=== PATIENT | female | born 1995 | race Caucasian/White ===

== ENCOUNTER → 2019-06-23 10:31 | Outpatient (CLI) | payer MEDICAID, SELFPAY | PROVIDERS: Referring Provider Advanced Practice Midwife; Visit Provider Advanced Practice Midwife | DX: Z34.82 Encounter for supervision of other normal pregnancy, second trimester (principal); Z13.79 Encounter for other screening for genetic and chromosomal anomalies | CPT/HCPCS: 36415 ==

== ENCOUNTER 2020-01-18 14:12 | Inpatient (IN) | payer MEDICAID, SELFPAY ==
[2020-01-18 14:14] VITALS: BMI 28.7
[2020-01-18] MEDS: Lactated Ringers 1,000 ML 200 ML IV (16:10)
[2020-01-18 16:38] LABS: Absolute Lymphocyte Count 2.34 X10^3/uL (0.83-4.51); Basophil# 0.04 X10^3/uL; Basophil% 0.4 % (0-1); Eosinophil# 0.06 X10^3/uL; Eosinophils% 0.7 % (0-5); Hematocrit 37.7 % (37-47); Hemoglobin 12.7 g/dL (12.0-15.0); Lymphocyte # 2.34 X10^3/ul (4.0); Lymphocyte % 25.8 % (19-41); Mean Corp Hgb Conc 33.7 g/dL (32-36); Mean Corpuscular Hgb 29.3 pg (27.0-32.0); Mean Corpuscular Volume 86.9 fL (81-99); Mean Platelet Vol. 12.4 fl (6.2-12.0); Monocyte# 0.58 X10^3/uL; Monocyte% 6.4 % (0-10); NRBC Flagged by Analyzer 0 % (0-5); Neutrophil # 6.01 X10^3/uL (2.7-7.7); Neutrophil % 66.4 % (47-70); Platelet Count 211 K/mm3 (150-450); RBC Distribution Width CV 12.5 % (11.6-14.6); RBC Distribution Width SD 39.8 fl (35.1-43.9); Red Blood Count 4.34 M/mm3 (4.2-5.4); White Blood Count 9.1 K/mm3 (4.4-11.0)
[2020-01-18] MEDS: Lactated Ringers 500 ML 999 ML IV (16:40)
[2020-01-18] MEDS: Oxytocin 30 units/NS 500 ml 30 UNITS/500 ML IV.SOLN IV (17:44)
[2020-01-18] MEDS: 0.9% Normal Saline Single 100 ML IV.SOLN. IY (18:50)
--- NOTE | 2020-01-18 18:58 | HP.PCM_ITS ---
History Date of Admission: 01/18/20 Final KODI: 02/03/20 Gestational age: 37 Weeks and 5 Days Medical History: Medical History (Last Reviewed 01/12/20 @ 12:58 by Aleisha Villalobos) Anxiety F41.9 Bilateral headaches R51 Currently Z34.90 Environmental allergies Z91.09 GERD (gastroesophageal reflux disease) K21.9 Surgical History: Surgical History (Last Reviewed 01/12/20 @ 12:58 by Aleisha Villalobos) History of tonsillectomy and adenoidectomy Z98.890 Allergies No Known Allergies Allergy (Verified 01/18/20 14:15) Home Medications: Home Medications prenat.vits,abdoul,mfv-tsnb-gzyuy 1 tab PO DAILY 11/30/19 Smoking Status: Never smoker Alcohol: None Number of Fetus(es): 1 NST - FHR Rate Baby A Baseline: 145 Variability:: Moderate Accelerations:: 15 x 15 Decelerations:: Variable FHR Category:: Category II Uterine Activity:: Irregular History Past Pregnancies: Past Pregnancies Delivery Date Name GA/ Weeks Outcome Route Wt Sex Labor Length Anesthesia Delivery Location Provider FOB Labs: See [facility] H&P Physical Exam General: Alert, Oriented x3 Abdomen: Soft, Non Tender, Non-Distended - ff mid & below umb Extremities:: No tenderness/swelling Neurological: Cranial nerves II-XII grossly intact 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 Admit to L&D Induction - patient with persistent category 2 tracing in the office (variables) thus sent for induction. Patient is on pitocin & intracervical holbrook placed. FWB - fetus is tolerating induction. Plan for continuous monitoring. GBS negative EFW - less than 4500g, patient with adequate pelvis Pain - epidural as desired Routine care
[2020-01-18] MEDS: fentaNYL 100 MCG/2 ML Ampul IV (22:31)
[2020-01-19] VITALS (12 sets, daily range): BP systolic 104–121; BP diastolic 57–70; PULSE 85–118; RESP 16–20; TEMP 36.7–36.8; O2SAT 96–98
[2020-01-19] MEDS: Lactated Ringers 1,000 ML 200 ML IV ×2 (00:20→06:32)
[2020-01-19] MEDS: fentaNYL 100 MCG/2 ML Ampul IV (01:35)
[2020-01-19] MEDS: Lactated Ringers 500 ML 999 ML IV ×3 (01:36→09:22)
[2020-01-19] MEDS: fentaNYL-bupivacaine (epidural) 100 ML BAG EPIDURAL ×2 (03:55→08:38)
[2020-01-19] MEDS: Ondansetron 4 MG/2 ML Vial IV (04:52)
[2020-01-19 05:21] LABS: ROM Internal Control Test YES-OK TO RESULT pt. (Internal QC); ROM Patient Test POSITIVE (Negative)
[2020-01-19] MEDS: Amnioinfusion- 0.9% NS 1,000 ML IV.SOLN. INTRA-UTER (06:44)
--- NOTE | 2020-01-19 06:51 | PCM.PN.BLA ---
Progress Note S: Patient comfortable with epidural O: cvx - 5/80/-1 AROM blood tinged fluid FSE & IUPC placed fhts 145 with moderate variability, accels. intermittent variables and occ late decels tocos Q2-4 min A&P: continue pitocin induction FWB - EFM overall reassuring Start amnioinfusion as patient with variable after AROM and was having increased variables prior to AROM
--- NOTE | 2020-01-19 08:40 | PN.OBGYN_ITS ---
Subjective: Resting well with epidural and peanut ball in bed. Partner at bedside. Objective: FHR:FHT 135, moderate variability, accels, variable decels with occasional late decel, category 2 TOCO:every 3 minutes, moderate, Pitocin off Cervical exam: 6cm/80%/-2 - Physical Exam Vitals/I&O's: Weight: 162 lb 4.163 oz Body Mass Index (BMI) 28.7 Intake and Output for Last 24 Hours 01/17/20 01/18/20 01/19/20 23:59 23:59 23:59 Intake Total 917.44 / 917.44 2934.26 / 2934.26 Output Total 1200 / 1200 600 / 600 Balance -282.56 / -282.56 2334.26 / 2334.26 Laboratory Results 01/18/20 16:10: WBC 9.1, RBC 4.34, Hgb 12.7, Hct 37.7, MCV 86.9, MCH 29.3, MCHC 33.7, RDW Std Deviation 39.8, RDW Coeff of Niru 12.5, Plt Count 211, MPV 12.4 H, Immature Gran % (Auto) 0.300, Neut % (Auto) 66.4, Lymph % (Auto) 25.8, [place] % (Auto) 6.4, Eos % (Auto) 0.7, Baso % (Auto) 0.4, Absolute Neuts (auto) 6.0, Absolute Lymphs (auto) 2.34, Nucleated RBC % 0 01/18/20 16:10: Blood Type A POSITIVE, Antibody Screen NEGATIVE 01/19/20 05:10: Vag Amniotic Fld Detect POSITIVE H Current Medications Acetaminophen (Tylenol) 325 - 650 mg PO Q4H PRN PRN PRN Reason: Pain Score 1-3/10 Al Hydroxide/Mg Hydroxide (Mylanta Ii) 15 - 30 ml PO Q4H PRN PRN PRN Reason: INDIGESTION Citric Acid/Sodium Citrate (Bicitra) 30 ml PO X1 PRN PRN Reason: Section Ephedrine Sulfate () 10 mg IV Q10M PRN PRN Reason: hypotension Ephedrine Sulfate () 10 mg IM Q30M PRN PRN Reason: hypotension Fentanyl Citrate (Sublimaze (100mcg Ampule)) 25 - 50 mcg IV Q2H PRN PRN PRN Reason: Pain Score 4-10/10 Last Admin: 01/19/20 01:35 Dose: 50 mcg Documented by: Fentanyl/Bupivacaine/Sodium Chlor () 0 ml EPIDURAL UD ROME; Protocol Last Admin: 01/19/20 08:38 Dose: 100 ml Documented by: Oxytocin/Sodium Chloride () 30 units in 500 mls @ 2 mls/hr IV .Q250H ROME Last Infusion: 01/19/20 07:06 Dose: 0 mls/hr Documented by: Lactated Ringer's () 500 mls @ 999 mls/hr IV .Q31M PRN PRN Reason: Epidural Last Infusion: 01/19/20 04:10 Dose: Infused Documented by: Lactated Ringer's () 500 mls @ 999 mls/hr IV .Q31M PRN PRN Reason: Corrective Measures Last Infusion: 01/19/20 02:07 Dose: Infused Documented by: Lactated Ringer's () 1,000 mls @ 50 mls/hr IV .Q20H ROME Last Admin: 01/19/20 06:32 Dose: 200 mls/hr Documented by: Naloxone HCl 4 mg/ Dextrose 504 mls @ 0 mls/hr IV .Q0M PRN; Protocol PRN Reason: To maintain Resp. rate >10 Nalbuphine HCl (Nubain) 5 mg IV Q3H PRN PRN PRN Reason: ITCHING Naloxone HCl (Narcan) 0.02 mg IV Q1M PRN PRN Reason: RR< 10 AND PT UNRESPONSIVE Ondansetron HCl (Zofran) 4 mg IV Q4H PRN PRN PRN Reason: NAUSEA Last Admin: 01/19/20 04:52 Dose: 4 mg Documented by: Prochlorperazine Edisylate (Compazine Iv) 10 mg IV Q6H PRN PRN PRN Reason: NAUSEA Sodium Chloride () 10 - 40 ml IV X1 PRN PRN Reason: SALINE FLUSH Sodium Chloride () 0 ml INTRA-UTER X1 ROME Last Admin: 01/19/20 06:44 Dose: 1,000 ml Documented by: Medical Necessity - Tobacco Use Smoking Status: Never smoker Assessment/Plan All Active Problems (Last Reviewed 01/12/20 @ 12:58 by Aleisha Villalobos) Neck pain (Acute) Segmental and somatic dysfunction of sacral region (Acute) Segmental and somatic dysfunction of thoracic region (Acute) Segmental and somatic dysfunction of lumbar region (Acute) Segmental and somatic dysfunction of cervical region (Acute) A:Active labor, progressing Category 2 FHT P: 1) Restart Pitocin, continue with active management. Continue with amnioinfusion 2) [facility] physician, updated on patient status.
--- NOTE | 2020-01-19 08:59 | DCINST_ITS ---
Discharge Diet: No Restrictions Discharge Activity: Return to Normal Activity, May not drive while taking narcotic pain medications., May Shower May resume sexual activity in: 4-6 weeks Weight Bearing Status: Full weight bearing Additional Activity Instructions:: Nothing in the vagina for 4-6 weeks. You may return to work/school in 6 weeks. Call your doctor if your incision/area has: Continuous Slow Oozing, Sudden Increased Bleeding, Increased Pain/ Swelling, Increased Redness, Foul Smelling Discharge Call your doctor if you observe: Fever of 101 or Higher, Inability to urinate, Inability to have a bowel movement, Using more than one pad per hour, Shortness of breath, Chest pain, Increased palpitations (irregular heartbeat), Calf discomfort, Uncontrolled pain Additional Instructions: If you experience any of the following, contact your healthcare provider. * Bleeding that soaks a pad every hour for 2 hours * Fever 100.4 or higher * Unrelieved incision or abdominal pain * Swelling, redness, discharge or bleeding from your incision or episiotomy site * Your incision begins to separate * Problems urinating (including inability to urinate or burning while urinating). * Visual changes * Severe headache * Flu-like symptoms * Pain or redness in one of both of your breasts * Pain, warmth, tenderness or swelling in your legs, especially the calf area * Frequent nausea and vomiting * Symptoms of depression or anxiety If you experience any of the following, call 911 or go to the nearest Emergency Room. * Chest pain * Problems breathing * Seizure activity * Partial or complete paralysis of a body part, slurred speech, weakness or drooping of the face, or a sudden inability to walk or hold your balance Allergies/Adverse Reactions: Allergies No Known Allergies Allergy (Verified 01/18/20 14:15) Medications to take at Discharge prenat.vits,abdoul,enh-jwrd-lgbdx 1 tab PO DAILY 11/30/19 Please Follow Up With: Linh Alberto When: Call to make an appointment with your doctor in 6 weeks. If you had elevated Blood Pressure or 4th degree laceration you will need to be seen in 2 weeks. Primary Care Physician: Care Physician,No Primary [Primary Care Provider] - Test Results: Test results from this visit will be discussed in further detail at your follow- up appointment, if applicable.
[2020-01-19] MEDS: Oxytocin 30 units/NS 500 ml 30 UNITS/500 ML IV.SOLN 334 UNITS IV (10:58)
--- NOTE | 2020-01-19 11:06 | OP.PCM_ITS ---
Problem List (1) Vaginal delivery Status: Acute Vaginal Delivery Maternal Presentation: Medically Indicated Induction - Consistent category 2 heart tracing with variable decelerations Method of Induction: Pitocin, Zepeda Bulb Amniotic Membrane Rupture Type: Artificial Amniotic Fluid Description: Clear Gestational age: 37w2d Description of Procedure: Progressed to complete. Maternal pushing efforts initiated and presentation +3. of viable male over intact perineum. delivered LUZ with CAN x1, delivered through. Infant placed on maternal abdomen with strong cry, APGARS 8,9. Mouth and nares wiped for secretions. Pitocin started for active 3rd stage management. Placenta delivered spontaneously intact via shaq, 3 vessel cord. Fundus firm. perineum inspected and revealed intact perineum. EBL 300ml. Vaginal sweep complete. Sponge and instrument count correct. Mom and baby stable. Family bonding well. notified of de livery and patient status. Presentation: Vertex Placental Delivery Description: Spontaneous Placenta Disposition: [facility] Cord Vessel Description: 3 Vessels Cord Entanglement: Around neck x 1, loose Estimated Blood Loss: 300 ml A gender: Male (1 minute): 8 (5 minute): 9 Episiotomy Description: None Laceration: None Medications given after delivery: IV Pitocin
[2020-01-19] MEDS: 0.9% Saline Lock 10 ML Syringe IV (13:42)
--- NOTE | 2020-01-19 13:57 | NURSING ---
Epidural catheter removed. Patient tolerated well. Blue tip intact.
[2020-01-20 00:01] VITALS: BP 98/55; PULSE 80; RESP 16; TEMP 36.8
[2020-01-20] MEDS: Acetaminophen 500 MG Tablet 1000 MG PO (01:58)
[2020-01-20 04:00] VITALS: BP 117/66; PULSE 88; RESP 16; TEMP 36.8
[2020-01-20 07:45] VITALS: BP 100/64; PULSE 74; RESP 16; TEMP 36.4
--- NOTE | 2020-01-20 08:05 | PCM.PN.OB ---
Patient Problems: Active and Suspected Problems (Last Reviewed 01/12/20 @ 12:58 by Aleisha Villalobos) Vaginal delivery (Acute) Subjective: Seen at bedside, doing well. Patient reports good pain control. Mild lochia. Breast-feeding going well. Voiding without difficulty. - Physical Exam Vitals/I&O's: Vital Signs Temp Pulse Resp BP 98.2 F 88 16 117/66 01/20/20 04:00 01/20/20 04:00 01/20/20 04:00 01/20/20 04:00 Oxygen Delivery Method Room Air Weight: 73.6 kg Body Mass Index (BMI) 28.7 Intake and Output for Last 24 Hours 01/18/20 01/19/20 01/20/20 23:59 23:59 23:59 Intake Total 917.44 / 917.44 4945.46 / 4945.46 Output Total 1200 / 1200 1400 / 1400 Balance -282.56 / -282.56 3545.46 / 3545.46 General: Alert, Oriented x3 Extremities: No Calf Tenderness Neurological: Cranial nerves II-XII grossly intact Current Medications Acetaminophen (Tylenol) 1,000 mg PO Q8H PRN PRN PRN Reason: Pain Score 1-3/10 Last Admin: 01/20/20 01:58 Dose: 1,000 mg Documented by: Bisacodyl (Dulcolax) 10 mg RECTAL UD PRN PRN Reason: If no BM Dibucaine (Dibucaine) 1 applic TOPICAL TID PRN PRN; Protocol PRN Reason: Discomfort Hydrocortisone (Hytone) 1 applic TOPICAL TID PRN PRN; Protocol PRN Reason: Discomfort Ibuprofen (Motrin) 600 mg PO Q6H PRN PRN PRN Reason: Pain Score 1-3/10 Methylergonovine Maleate (Methergine) 0.2 mg IM X1 PRN PRN Reason: Excess bleeding/uterine atony Ondansetron HCl (Zofran) 4 mg IV Q4H PRN PRN PRN Reason: Nausea Senna/Docusate Sodium (Senokot-S, Lora-Colace) 1 - 2 tablet PO DAILY PRN PRN PRN Reason: Constipation Simethicone (Mylicon) 80 mg PO PCHS PRN PRN Reason: Indigestion/Stomach pain Sodium Chloride () 5 - 15 ml IV UD PRN PRN Reason: SALINE FLUSH Last Admin: 01/19/20 13:42 Dose: 10 ml Documented by: Medical Necessity - Tobacco Use Smoking Status: Never smoker Assessment/Plan All Active Problems (Last Reviewed 01/12/20 @ 12:58 by Aleisha Villalobos) Vaginal delivery (Acute) Neck pain (Acute) Segmental and somatic dysfunction of sacral region (Acute) Segmental and somatic dysfunction of thoracic region (Acute) Segmental and somatic dysfunction of lumbar region (Acute) Segmental and somatic dysfunction of cervical region (Acute) PPD #1, doing well pain mgmt ambulation routine PP care
[2020-01-20 10:21] LABS: Hematocrit 35.1 % (37-47); Hemoglobin 11.9 g/dL (12.0-15.0); Mean Corp Hgb Conc 33.9 g/dL (32-36); Mean Corpuscular Hgb 30.1 pg (27.0-32.0); Mean Corpuscular Volume 88.6 fL (81-99); Mean Platelet Vol. 12.1 fl (6.2-12.0); Platelet Count 191 K/mm3 (150-450); RBC Distribution Width CV 12.6 % (11.6-14.6); RBC Distribution Width SD 41.1 fl (35.1-43.9); Red Blood Count 3.96 M/mm3 (4.2-5.4); White Blood Count 10.8 K/mm3 (4.4-11.0)
[2020-01-20 12:00] VITALS: BP 102/67; PULSE 70; RESP 16; TEMP 36.8
[2020-01-20 16:00] VITALS: BP 107/59; PULSE 79; RESP 16; TEMP 36.6
--- NOTE | 2020-01-20 17:48 | DCINST_ITS ---
Discharge Diet: No Restrictions Discharge Activity: Return to Normal Activity, May not drive while taking narcotic pain medications., May Shower May resume sexual activity in: 4-6 weeks Weight Bearing Status: Full weight bearing Additional Activity Instructions:: Nothing in the vagina for 4-6 weeks. You may return to work/school in 6 weeks. Call your doctor if your incision/area has: Continuous Slow Oozing, Sudden Increased Bleeding, Increased Pain/ Swelling, Increased Redness, Foul Smelling Discharge Call your doctor if you observe: Fever of 101 or Higher, Inability to urinate, Inability to have a bowel movement, Using more than one pad per hour, Shortness of breath, Chest pain, Increased palpitations (irregular heartbeat), Calf discomfort, Uncontrolled pain Additional Instructions: If you experience any of the following, contact your healthcare provider. * Bleeding that soaks a pad every hour for 2 hours * Fever 100.4 or higher * Unrelieved incision or abdominal pain * Swelling, redness, discharge or bleeding from your incision or episiotomy site * Your incision begins to separate * Problems urinating (including inability to urinate or burning while urinating). * Visual changes * Severe headache * Flu-like symptoms * Pain or redness in one of both of your breasts * Pain, warmth, tenderness or swelling in your legs, especially the calf area * Frequent nausea and vomiting * Symptoms of depression or anxiety If you experience any of the following, call 911 or go to the nearest Emergency Room. * Chest pain * Problems breathing * Seizure activity * Partial or complete paralysis of a body part, slurred speech, weakness or drooping of the face, or a sudden inability to walk or hold your balance Allergies/Adverse Reactions: Allergies No Known Allergies Allergy (Verified 01/18/20 14:15) Medications to take at Discharge prenat.vits,abdoul,zsi-rkzz-oxixv 1 tab PO DAILY 11/30/19 Ibuprofen [Motrin] 600 mg PO Q6H PRN PRN #30 tab 01/20/20 The following prescriptions were given: Ibuprofen [Motrin] 600 mg PO Q6H PRN PRN #30 tab PRN Reason: Pain Score 1-3/10 Transmission Status: Pending to [facility] Please Follow Up With: Haley Salvador CNM When: 1-2 weeks Call for appointment [phone] Primary Care Physician: Care Physician,No Primary [NON-STAFF] - Test Results: Test results from this visit will be discussed in further detail at your follow- up appointment, if applicable.
--- NOTE | 2020-01-20 17:48 | PCM.DCVAG ---
Discharge Diet: No Restrictions Discharge Activity: Return to Normal Activity, May not drive while taking narcotic pain medications., May Shower May resume sexual activity in: 4-6 weeks Weight Bearing Status: Full weight bearing Additional Activity Instructions:: Nothing in the vagina for 4-6 weeks. You may return to work/school in 6 weeks. Call your doctor if your incision/area has: Continuous Slow Oozing, Sudden Increased Bleeding, Increased Pain/ Swelling, Increased Redness, Foul Smelling Discharge Call your doctor if you observe: Fever of 101 or Higher, Inability to urinate, Inability to have a bowel movement, Using more than one pad per hour, Shortness of breath, Chest pain, Increased palpitations (irregular heartbeat), Calf discomfort, Uncontrolled pain Additional Instructions: If you experience any of the following, contact your healthcare provider. Bleeding that soaks a pad every hour for 2 hours Fever 100.4 or higher Unrelieved incision or abdominal pain Swelling, redness, discharge or bleeding from your incision or episiotomy site Your incision begins to separate Problems urinating (including inability to urinate or burning while urinating). Visual changes Severe headache Flu-like symptoms Pain or redness in one of both of your breasts Pain, warmth, tenderness or swelling in your legs, especially the calf area Frequent nausea and vomiting Symptoms of depression or anxiety If you experience any of the following, call 911 or go to the nearest Emergency Room. Chest pain Problems breathing Seizure activity Partial or complete paralysis of a body part, slurred speech, weakness or drooping of the face, or a sudden inability to walk or hold your balance Allergies/Adverse Reactions: Allergies No Known Allergies Allergy (Verified 01/18/20 14:15) Medications to take at Discharge prenat.vits,abdoul,gyo-bkbn-izaez 1 tab PO DAILY 11/30/19 Ibuprofen [Motrin] 600 mg PO Q6H PRN PRN #30 tab 01/20/20 The following prescriptions were given: Ibuprofen [Motrin] 600 mg PO Q6H PRN PRN #30 tab PRN Reason: Pain Score 1-3/10 Transmission Status: Pending to [facility] Please Follow Up With: Haley Salvador CNM When: 1-2 weeks Call for appointment [phone] Primary Care Physician: Care Physician,No Primary [NON-STAFF] - Test Results: Test results from this visit will be discussed in further detail at your follow-up appointment, if applicable.
== END 2020-01-20 18:50 | disposition home or self-care (01) | DRG 560 ==
LOC: WP 14:12
PROVIDERS: Admitting Provider Advanced Practice Midwife; PCP Obstetrics & Gynecology; Referring Provider Obstetrics & Gynecology; Visit Provider Advanced Practice Midwife
DX: O76 Abnormality in fetal heart rate and rhythm complicating labor and delivery (principal); O60.14X0 Preterm labor third trimester with preterm delivery third trimester, not applicable or unspecified; O69.81X0 Labor and delivery complicated by cord around neck, without compression, not applicable or unspecified; M99.01 Segmental and somatic dysfunction of cervical region; M99.02 Segmental and somatic dysfunction of thoracic region; M99.04 Segmental and somatic dysfunction of sacral region; M99.03 Segmental and somatic dysfunction of lumbar region; Z37.0 Single live birth; Z3A.37 37 weeks gestation of pregnancy
CPT/HCPCS: 59025; 59050; 84112; 85025; 85027; 86850; 86900; 86901; 99218; J7030; J7120; A4216; G0378; J2405

== ENCOUNTER 2022-09-16 06:53 | Inpatient (IN) | payer MEDICAID, SELFPAY ==
[2022-09-16] VITALS (28 sets, daily range): BP systolic 110–138; BP diastolic 58–78; PULSE 80–100; RESP 16; TEMP 35.6–36.9; O2SAT 94–99; BMI 29.7
--- NOTE | 2022-09-16 07:08 | PCM.HP.OB ---
HPI - General General Date of Admission: 09/16/22 HPI Narrative DANITZA MARKHAM, is a 27 F at 41.1 weeks gestation who presents for scheduled induction of labor. has been uncomplicated. Maternal Data Information KODI Calculator Estimated Delivery Date Method Current WG Current Estimate 09/08/22 Manual 41w 1d PFSH PFS Medical History Anxiety Bilateral headaches Currently Environmental allergies GERD (gastroesophageal reflux disease) Home Medications prenat.vits,abdoul,fox-vtyq-zbxvb 1 tab PO DAILY Check with primary doctor 11/30/19 [History Last Taken 01/17/20 21:00] ibuprofen 600 mg tablet 600 mg PO Q6H PRN PRN Pain Score 1-3/10 #30 tabs 01/20/20 [Rx Last Taken Unknown] Allergy/AdvReac Type Severity Reaction Status Date / Time No Known Allergies Allergy Verified 01/18/20 14:15 Family History Other Myocardial infarction Surgical History History of tonsillectomy and adenoidectomy Social History Smoking Status: Never smoker alcohol intake: never substance use type: does not use what type of physical activity do you participate in: none History Elective abortions Hx Para 1 Spontaneous abortions Hx # Term Pregnancies Ectopic pregnancies Hx # Pregnancies Multiple births # of living children ROS Eyes Eyes: Denies blurry vision, change in vision or spots in vision ENT HEENT: Denies dizziness or headache(s) Cardiovascular Cardiovascular: Denies abdominal pain, chest pain or dyspnea Respiratory/Chest Respiratory/Chest: Denies cough, dyspnea, shortness of breath at rest or shortness of breath with exertion Gastrointestinal Gastrointestinal: Denies abdominal pain, diarrhea or vomiting Genitourinary Genitourinary: Denies change in urinary stream, difficulty urinating or dysuria Musculoskeletal Musculoskeletal: Reports none Integumentary Integumentary: Denies rash Neurologic Neurologic: Denies dizziness, headache(s), memory loss or weakness Psychiatric Psychiatric: Reports none Physical Exam Const alert, oriented x3 and no apparent distress General Appearance: cooperative Orientation / Consciousness: awake Exam Limitations: no limitations HEENT normocephalic Head and Scalp: normal to inspection Eyes General Eye: normal appearance of both eyes Neck full ROM and no lymphadenopathy Lymph Lymphatic: no lymphadenopathy noted Chest inspection of chest normal Resp normal respiratory effort, normal air movement and clear to auscultation bilaterally Effort and Inspection: able to speak in complete sentences and symmetric chest movement Cardio regular rate and regular rhythm GI normal to inspection, nondistended, normoactive bowel sounds Manual OB Exam: presentation cephalic Back/Spine normal ROM Extremity full ROM and no calf tenderness Skin no rashes or lesions noted General Skin Exam: no breakdown Neuro oriented x3 and CN's II-XII intact bilaterally Psych mental status grossly normal and thought process normal Labs Labs Labs: Blood Type A POSITIVE Antibody Screen NEGATIVE Hct 35.1 % (37-47) L Hgb 11.9 g/dL (12.0-15.0) L Rhogam given: No Miscellaneous Test A+ Rubella- immune HB neg HC neg HIV- NR RPR-NR GBS negative Assessment & Plan (1) Encounter for induction of labor: (2) 41 weeks gestation of : (3) History of depression: PLAN: Plan Admit to labor and delivery GBS negative Routine labs Start IV and run per orders Start Pitocin IV at 2 mu/min and increase per policy Anticipate AROM Dr. Pedro notified of admission
[2022-09-16] MEDS: Lactated Ringers 1,000 ML 50 ML IV (07:30)
[2022-09-16 08:01] LABS: Absolute Lymphocyte Count 2.05 X10^3/uL (0.83-4.51); Absolute Neutrophil Count 6.4 X10^3/uL (2.0-7.7); Basophil# 0.05 X10^3/uL; Basophil% 0.5 % (0-1); Eosinophil# 0.13 X10^3/uL; Eosinophils% 1.4 % (0-5); Hemoglobin 13.9 g/dL (12.0-15.0); Lymphocyte # 2.05 X10^3/ul (0.83-4.51); Lymphocyte % 22.4 % (19-41); Mean Corp Hgb Conc 33.9 g/dL (32-36); Mean Corpuscular Hgb 30.3 pg (27.0-32.0); Mean Corpuscular Volume 89.3 fL (81-99); Mean Platelet Vol. 11.6 fl (6.2-12.0); Monocyte# 0.48 X10^3/uL; Monocyte% 5.2 % (0-10); NRBC Flagged by Analyzer 0 % (0-5); Neutrophil # 6.39 X10^3/uL (2.7-7.7); Platelet Count 188 K/mm3 (150-450); RBC Distribution Width CV 13.2 % (11.6-14.6); RBC Distribution Width SD 42.5 fl (35.1-43.9); Red Blood Count 4.59 M/mm3 (4.2-5.4); White Blood Count 9.2 K/mm3 (4.4-11.0)
[2022-09-16] MEDS: Oxytocin 15 Units/NS 250ml 15 UNITS/250 ML IV.SOLN 2 UNITS IV (08:07)
[2022-09-16] MEDS: 0.9% Normal Saline Single 100 ML IV.SOLN. INTRA-UTER (08:29)
--- NOTE | 2022-09-16 10:57 | PCM.PN.BLA ---
Progress Note Patient feeling increase in contraction strength and frequency. Ambulating in room. Requesting to try nitrous oxide for pain control. Zepeda bulb out. Requesting AROM. Physical Exam Const alert and no apparent distress General Appearance: cooperative Exam Limitations: no limitations HEENT normocephalic Eyes General Eye: normal appearance of both eyes Neck full ROM General: normal visual inspection Chest Chest: symmetrical chest wall rise Resp normal respiratory effort and normal air movement Effort and Inspection: symmetric chest movement Auscultation: clear to auscultation bilaterally Cardio regular rate and regular rhythm GI normal to inspection, nondistended, normoactive bowel sounds Back/Spine normal ROM Extremity full ROM and no calf tenderness General Extremity: normal exam except as noted Skin no rashes or lesions noted Neuro CN's II-XII intact bilaterally Psych mental status grossly normal Assessment & Plan Assessment/Plan (1) 41 weeks gestation of : (2) Encounter for induction of labor: PLAN: Plan A.R.O.M for large amount of clear fluid 5/70/-1 Pain medication as indicated Epidural if desires Continue Pitocin IV and increase per policy Anticipate
[2022-09-16] MEDS: LACTATED RINGERS 500 ML 999 ML IV (12:15)
--- NOTE | 2022-09-16 16:01 | EX.PCM.OBRPT ---
Assessment & Plan (1) 41 weeks gestation of : (2) Encounter for induction of labor: (3) (spontaneous vaginal delivery): Maternal Data Information KODI Calculator Estimated Delivery Date Method Current WG Current Estimate 09/08/22 Manual 41w 1d Vaginal Delivery Maternal Presentation Maternal Presentation: Medically Indicated Induction Maternal Presentation: Patient is a at 41.1 weeks gestation that was here for scheduled induction of labor. Type of Induction: Pitocin, Zepeda Bulb and Amniotomy Medical Reason for Induction: Post term Operative Information Date of Procedure: 09/16/22 Type of Anesthesia: None Estimated Blood Loss: 150 Time of Delivery: 15:47 Findings Description of Procedure: Provided bedside support to patient at 8 cm. Assisted with position changes and massage. Patient feeling pressure and involuntarily bearing down. Complete dilation +2 station. With one push, head delivered followed immediately by anterior shoulder than remainder of infant body. Vigorous male placed on maternal abdomen and attended to by nursing staff. Pitocin IV started for active management of the third stage of labor. 3 vessel cord clamped and cut by FOB. Infant placed skin to skin with patient. Placenta delivered spontaneously and intact. After inspection- no vaginal or perineal lacerations noted. Vaginal sweep completed by me. Fundus firm at U. EBL 150 cc. APGARS 9/9. Patient and bonding well at this time. Dr. Pedro notified of delivery. Presentation: Vertex and LAMBERTO Amniotic Membrane Rupture Type: Artificial Time of Membrane Rupture: 1045 Amniotic Fluid Description: Clear Placental Delivery Description: Spontaneous Placenta Disposition: [facility] Cord Vessel Description: 3 Vessels Cord Entanglement: None Infant A Gender: Male (1 minute): 9 (5 minute): 9 Delayed Cord Clamping: Yes Post Vaginal Delivery Medications Given After Delivery: IV Pitocin Episiotomy Description: None Laceration: None Complication Complications: None
[2022-09-17] VITALS (7 sets, daily range): BP systolic 102–131; BP diastolic 60–85; PULSE 71–88; RESP 16–18; TEMP 36.3–36.8; O2SAT 94–95
[2022-09-17] MEDS: Ibuprofen 600 MG Tablet PO (03:22)
--- NOTE | 2022-09-17 07:22 | PCM.PN.OB ---
Subjective Subjective Patient seen at bedside. Feeling good. Ambulating and voiding without difficulty. with no issues. Denies any pain. Desires discharge home today. Objective Data Objective Data Vital Signs: Vital Signs Temp Pulse Resp BP Pulse Ox O2 Del Method 98.2 F 83 16 131/85 H 95 Room Air 09/17/22 03:20 09/17/22 03:20 09/17/22 03:20 09/17/22 03:20 09/17/22 00:52 09/17/22 03:20 Oxygen Delivery Method Room Air Weight: 162 lb 14.746 oz Body Mass Index (BMI) 29.7 Intake & Output: Intake and Output for Last 24 Hours 09/15/22 09/16/22 09/17/22 23:59 23:59 23:59 Intake Total 1167.50 / 1167.50 Output Total 500 / 500 Balance 667.50 / 667.50 Lab / Micro Data Result Diagrams: 09/16/22 07:32 Labs: Laboratory Results - last 24 hr 09/16/22 07:32: WBC 9.2, RBC 4.59, Hgb 13.9, Hct 41.0, MCV 89.3, MCH 30.3, MCHC 33.9, RDW Std Deviation 42.5, RDW Coeff of Niru 13.2, Plt Count 188, MPV 11.6, Immature Gran % (Auto) 0.500, Neut % (Auto) 70.0, Lymph % (Auto) 22.4, [place] % (Auto) 5.2, Eos % (Auto) 1.4, Baso % (Auto) 0.5, Absolute Neuts (auto) 6.4, Absolute Lymphs (auto) 2.05, Nucleated RBC % 0 09/16/22 07:32: Blood Type A POSITIVE, Antibody Screen NEGATIVE Micro: Microbiology 09/16/22 07:40 Nasal Secretion SARS-CoV-2 Antigen (Rapid) - Final ROS Eyes Eyes: Denies blurry vision, change in vision or spots in vision ENT HEENT: Denies dizziness or headache(s) Cardiovascular Cardiovascular: Denies abdominal pain, chest pain or dyspnea Respiratory/Chest Respiratory/Chest: Denies cough, dyspnea, shortness of breath at rest or shortness of breath with exertion Gastrointestinal Gastrointestinal: Denies abdominal pain, diarrhea or vomiting Genitourinary Genitourinary: Denies change in urinary stream, difficulty urinating or dysuria Musculoskeletal Musculoskeletal: Reports none Integumentary Integumentary: Denies rash Neurologic Neurologic: Denies dizziness, headache(s), memory loss or weakness Physical Exam Const alert and no apparent distress General Appearance: cooperative and comfortable Exam Limitations: no limitations HEENT normocephalic Eyes General Eye: normal appearance of both eyes Neck full ROM General: normal visual inspection Chest Chest: symmetrical chest wall rise Resp normal respiratory effort and normal air movement Effort and Inspection: symmetric chest movement Auscultation: clear to auscultation bilaterally Cardio regular rate and regular rhythm GI normal to inspection, nondistended, normoactive bowel sounds Back/Spine normal ROM Extremity full ROM and no calf tenderness General Extremity: normal exam except as noted Skin no rashes or lesions noted Neuro CN's II-XII intact bilaterally Psych mental status grossly normal Assessment & Plan (1) (spontaneous vaginal delivery): (2) Care and examination of lactating mother: PLAN: Plan PPD 1 Routine care support D/C home with follow up instructions in office
--- NOTE | 2022-09-17 07:24 | DCINST_ITS ---
Discharge Instructions Diet Discharge Diet: No restrictions Activity Discharge Activity: Return to Normal Activity, May Shower and May Take a Tub Bath May resume sexual activity in: 4-6 weeks Weight Bearing Status: Weight bearing as tolerated Dressing / Incision Call your doctor if you observe: Inability to urinate, Using more than 1 pad per hour, Shortness of breath, Dizziness, Swelling in the ankles, Chest pain, Calf discomfort and Uncontrolled pain Follow Up Care Please Follow Up With: Fouzia Constantino CNM When: Within 14 days Test Results: Test results from this visit will be discussed in further detail at your follow- up appointment, if applicable. Discharge Plan Admission Admit Date/Time: 09/16/22 06:53 Primary Reason for Your Visit: Labor and Delivery Attending Provider: Fouzia Constantino Primary Care Provider: Care PhysicianMitzi Primary Discharge Orders/Prescriptions Prescriptions: Continued prenat.vits,abdoul,bho-ijcs-eydvl Tablet 1 tab PO DAILY ibuprofen 600 MG tablet 600 mg PO Q6H PRN PRN (Reason: Pain Score 1-3/10) Qty: 30 0RF loratadine [Claritin] 10 mg Tablet 10 mg PO DAILY PRN (Reason: Allergy Symptoms) Discontinued famotidine [Pepcid] 20 mg Tablet 20 mg PO BID Referrals / Follow Up: Care Physician,Mitzi Primary [Primary Care Provider] - Disposition Disposition (needs filled in before D/C Order can be placed): Home, Self Care
== END 2022-09-17 17:30 | disposition home or self-care (01) | DRG 560 ==
PROVIDERS: Admitting Provider Advanced Practice Midwife; Visit Provider Advanced Practice Midwife
DX: O48.0 Post-term pregnancy (principal); Z37.0 Single live birth; Z3A.41 41 weeks gestation of pregnancy
CPT/HCPCS: 59025; 59050; 85025; 86850; 86900; 86901; 87426; 99218; J7120; G0378

== ENCOUNTER 2025-02-05 07:12 | Inpatient (IN) | payer MEDICAID, SELFPAY ==
[2025-02-05] VITALS (22 sets, daily range): BP systolic 110–136; BP diastolic 57–82; PULSE 76–116; RESP 16–18; TEMP 36.4–36.8; O2SAT 98
[2025-02-05] MEDS: Lactated Ringers 1,000 ML 50 ML IV (07:40)
[2025-02-05 07:57] LABS: Absolute Lymphocyte Count 2.05 X10^3/uL (0.83-4.51); Absolute Neutrophil Count 6.9 X10^3/uL (2.0-7.7); Basophil# 0.04 X10^3/uL; Basophil% 0.4 % (0-1); Eosinophil# 0.11 X10^3/uL; Eosinophils% 1.1 % (0-5); Hematocrit 39.9 % (37-47); Hemoglobin 13.8 g/dL (12.0-15.0); Lymphocyte # 2.05 X10^3/ul (0.83-4.51); Lymphocyte % 21.2 % (19-41); Mean Corp Hgb Conc 34.6 g/dL (32-36); Mean Corpuscular Hgb 30.7 pg (27.0-32.0); Mean Corpuscular Volume 88.9 fL (81-99); Mean Platelet Vol. 12.2 fl (6.2-12.0); Monocyte# 0.55 X10^3/uL; Monocyte% 5.7 % (0-10); NRBC Flagged by Analyzer 0 % (0-5); Neutrophil # 6.85 X10^3/uL (2.7-7.7); Platelet Count 182 K/mm3 (150-450); RBC Distribution Width SD 42.1 fl (35.1-43.9); Red Blood Count 4.49 M/mm3 (4.2-5.4); White Blood Count 9.7 K/mm3 (4.4-11.0)
[2025-02-05] MEDS: 0.9% Normal Saline Single 100 ML IV.SOLN. INTRA-UTER (08:40)
[2025-02-05] MEDS: Oxytocin 15 Units/NS 250ml 15 UNITS/250 ML IV.SOLN 2 UNITS IV (08:43)
--- NOTE | 2025-02-05 08:48 | PCM.HP.OB ---
HPI - General General Date of Admission: 02/05/25 HPI Narrative DANITZA MARKHAM, is a 29 F at 40.4 weeks gestation who presents for elective induction of labor. Maternal Data Information KODI Calculator Estimated Delivery Date Method Current WG Current Estimate 02/01/25 Manual 40w 4d PFSH PFS Medical History (Updated 02/05/25 @ 08:53 by Fouzia Constantino CNM) History of depression Care and examination of lactating mother (spontaneous vaginal delivery) Family history of hearing loss at age younger than 7 years Currently GERD (gastroesophageal reflux disease) Bilateral headaches Anxiety Environmental allergies Home Medications ?Medication ?Instructions ?Recorded ?Last Taken ?Type prenat.vits,abdoul,bkk-gegi-cywms 1 tab PO DAILY Check with primary 11/30/19 09/15/22 20:00 History doctor Allergy/AdvReac Type Severity Reaction Status Date / Time No Known Allergies Allergy Verified 02/05/25 07:58 Family History Other Myocardial infarction Surgical History History of surgery History of tonsillectomy and adenoidectomy Social History Smoking Status: Never smoker alcohol intake: never substance use type: does not use what type of physical activity do you participate in: none History Elective abortions Hx Para 3 Spontaneous abortions Hx # Term Pregnancies Ectopic pregnancies Hx # Pregnancies Multiple births # of living children NST FHR Rate Baby A Baseline: 140 Variability:: Moderate Accelerations:: 15 x 15 Decelerations:: None NST Reactive:: Yes FHR Category:: Category I Uterine Activity:: irritability ROS Eyes Eyes: Denies blurry vision, change in vision or spots in vision ENT HEENT: Denies dizziness or headache(s) Cardiovascular Cardiovascular: Denies abdominal pain, chest pain or dyspnea Respiratory/Chest Respiratory/Chest: Denies cough, dyspnea, shortness of breath at rest or shortness of breath with exertion Gastrointestinal Gastrointestinal: Denies abdominal pain, diarrhea or vomiting Genitourinary Genitourinary: Denies change in urinary stream, difficulty urinating or dysuria Musculoskeletal Musculoskeletal: Reports none Integumentary Integumentary: Denies rash Neurologic Neurologic: Denies dizziness, headache(s), memory loss or weakness Psychiatric Psychiatric: Reports none Vital Signs Vital Signs Vital Signs: 02/05/25 07:25 02/05/25 07:25 02/05/25 07:26 Temperature Pulse Rate 113 H 116 H Respiratory Rate Blood Pressure 132/82 H BP Systolic 132 BP Diastolic 82 Pulse Ox 02/05/25 07:26 02/05/25 08:13 02/05/25 08:13 Temperature 98.0 F Pulse Rate Respiratory Rate 16 Blood Pressure BP Systolic BP Diastolic Pulse Ox 98 Weight Weight: 169 lb 12.095 oz Body Mass Index (BMI) 30.0 Physical Exam Const alert, oriented x3 and no apparent distress General Appearance: cooperative Orientation / Consciousness: awake Exam Limitations: no limitations HEENT normocephalic Head and Scalp: normal to inspection Eyes General Eye: normal appearance of both eyes Neck full ROM and no lymphadenopathy Lymph Lymphatic: no lymphadenopathy noted Chest inspection of chest normal Resp normal respiratory effort, normal air movement and clear to auscultation bilaterally Effort and Inspection: able to speak in complete sentences and symmetric chest movement Cardio regular rate and regular rhythm GI normal to inspection, nondistended, normoactive bowel sounds Manual OB Exam: presentation cephalic Back/Spine normal ROM Extremity full ROM and no calf tenderness Skin no rashes or lesions noted General Skin Exam: no breakdown Neuro oriented x3 and CN's II-XII intact bilaterally Psych mental status grossly normal and thought process normal Labs Labs Labs: Blood Type A POSITIVE Antibody Screen NEGATIVE Hct 39.9 % (37-47) Hgb 13.8 g/dL (12.0-15.0) Rhogam given: No Miscellaneous Test Assessment & Plan (1) 40 weeks gestation of : (2) Encounter for elective induction of labor: (3) History of depression: PLAN: Plan Admit to L&D CE /2 Zepeda bulb placed without difficulty and filled with 30 cc N/S GBS negative Pain medication if indicated Dr. Yu notified of admission and is collaborating physician
[2025-02-05 10:03] LABS: Syphilis Antibodies Nonreactive (Nonreactive)
--- NOTE | 2025-02-05 17:58 | PN.OBGYN_ITS ---
Subjective Subjective Patient seen at bedside. Breathing through contractions. Frequent position changes. Declines pain medications or nitrous. Objective Data Objective Data Vital Signs: Vital Signs Temp Pulse Resp BP Pulse Ox 97.5 F L 99 16 126/72 H 98 02/05/25 16:07 02/05/25 17:28 02/05/25 16:07 02/05/25 17:28 02/05/25 07:26 Weight: 169 lb 12.095 oz Body Mass Index (BMI) 30.0 Intake & Output: Intake and Output for Last 24 Hours 02/03/25 02/04/25 02/05/25 23:59 23:59 23:59 Intake Total 12.60 / 12.60 Balance 12.60 / 12.60 Lab / Micro Data 02/05/25 07:40 Labs: Laboratory Results - last 24 hr 02/05/25 07:40: WBC 9.7, RBC 4.49, Hgb 13.8, Hct 39.9, MCV 88.9, MCH 30.7, MCHC 34.6, RDW Std Deviation 42.1, RDW Coeff of Niru 13.0, Plt Count 182, MPV 12.2 H, Immature Gran % (Auto) 0.600, Neut % (Auto) 71.0 H, Lymph % (Auto) 21.2, [place] % (Auto) 5.7, Eos % (Auto) 1.1, Baso % (Auto) 0.4, Absolute Neuts (auto) 6.9, Absolute Lymphs (auto) 2.05, Nucleated RBC % 0, Syphilis Total Ab Nonreactive, Blood Type A POSITIVE, Antibody Screen NEGATIVE Assessment & Plan (1) History of depression: (2) Encounter for elective induction of labor: (3) 40 weeks gestation of : PLAN: Plan NST reactive CE 5/70/0 Anterior cervix thick Assisting patient with ambulation to void Pitocin at 4 mu/min Continue present plan of care Anticipate
[2025-02-05] MEDS: Oxytocin 15 Units/NS 250ml 15 UNITS/250 ML IV.SOLN 334 UNITS IV (18:16)
--- NOTE | 2025-02-05 18:28 | EX.PCM.OBVAG ---
Assessment & Plan (1) History of depression: (2) (spontaneous vaginal delivery): (3) Care and examination of lactating mother: (4) Anxiety: Maternal Data Information KODI Calculator Estimated Delivery Date Method Current WG Current Estimate 02/01/25 Manual 40w 4d Vaginal Delivery Maternal Presentation Maternal Presentation: Elective Induction Type of Induction: Pitocin, Zepeda Bulb and Amniotomy Vaginal Delivery Information Procedure Performed: Spontaneous Vaginal Delivery Surgeon/Practitioner: Fouzia Constantino Pre-Procedure Diagnosis: Term gestation, elective induction of labor Post-Procedure Diagnosis: , Live male Type of anesthesia: None Estimated Blood Loss: 100 Time of Delivery: 18:12 Findings Description of procedure: Patient quickly progressed to complete dilation. With good maternal effort, head delivered followed by anterior shoulder and remainder of body without any force, delay, or traction. Nuchal cord around neck x1 loose and easily reduced. Vigorous male was delivered atraumatically and placed on maternal abdomen. Pitocin IV started for active management of the third stage of labor. 3 vessel cord clamped and cut after delay and infant placed immediately skin to skin with patient. Placenta delivered spontaneously and intact. After inspection, vagina and perineum are intact. Vaginal sweep performed. Fundus is firm 2 below U and bleeding is hemostatic. Sponge and sharps counts correct. Patient and bonding well at this time. Dr. Yu notified of delivery. Routine post orders placed. Presentation: Vertex Amniotic Membrane Rupture Type: Artificial Amniotic Fluid Description: Clear Placental Delivery Description: Spontaneous Placenta Disposition: [facility] Specimen collected: No Cord Vessel Description: 3 Vessels Cord Entanglement: Around neck x 1, loose Nuchal Cord Compression: Without compression Infant A Gender: Male (1 minute): 8 (5 minute): 9 Delayed Cord Clamping: Yes Application Support Manager utility bill complaints investigator: No Post Vaginal Deli Medications given after delivery: IV Pitocin Episiotomy Description: None Laceration: None Complication Complications: No
[2025-02-05] MEDS: Oxytocin 15 Units/NS 250ml 15 UNITS/250 ML IV.SOLN 83 UNITS IV (19:05)
[2025-02-05] MEDS: Acetaminophen 500 MG Tablet 1000 MG PO (21:47)
[2025-02-06] VITALS (13 sets, daily range): BP systolic 105–146; BP diastolic 55–92; PULSE 70–90; RESP 16–18; TEMP 36.2–36.6; O2SAT 95–98
[2025-02-06] MEDS: Acetaminophen 500 MG Tablet 1000 MG PO (04:55)
--- NOTE | 2025-02-06 08:23 | DS.PCM_ITS ---
Providers Date of Admission: 02/05/25 Primary Care Physician: Mitzi Primary Care Phys Reason For Visit: INDUCTION Diagnosis Discharge Diagnosis (1) History of depression: Status: Acute Code(s): Z86.59 - Personal history of other mental and behavioral disorders (2) (spontaneous vaginal delivery): Status: Acute Code(s): O80 - Encounter for full-term uncomplicated delivery (3) Care and examination of lactating mother: Status: Acute Code(s): Z39.1 - Encounter for care and examination of lactating mother (4) Anxiety: Status: Acute Code(s): F41.9 - Anxiety disorder, unspecified Plan PPD 1 support Pain control D/C home after 24 hours with follow up in office Medications at Discharge Home Medications prenat.vits,abdoul,run-nyja-sufhp 1 tab PO DAILY Check with primary doctor 11/30/19 acetaminophen 500 mg tablet 1,000 mg (2 x 500 mg) PO Q6H PRN PRN Pain 1-10 Or Fever #0 tabs 02/06/25 naproxen 500 mg tablet 500 mg PO Q8H PRN PRN Pain Score 1-10 #0 tabs 02/06/25 Hospital Course Operations None Procedures None Summary of Care Provided Minutes Spent on Discharge: 15 Hospital Course: Patient had vaginal delivery. Hospital course was uneventful. Physical Exam Narrative Patient seen at bedside. Denies pain. Ambulating and voiding without difficulty. Lochia decreased. Desires discharge home today. Const alert and oriented x3 General Appearance: Negative for in distress HEENT normocephalic Eyes General Eye: normal appearance of both eyes Neck General: normal visual inspection Chest Chest: symmetrical chest wall rise Resp normal respiratory effort and normal air movement Effort and Inspection: symmetric chest movement; Negative for tachypneic Auscultation: clear to auscultation bilaterally Cardio regular rate and regular rhythm Peripheral Pulses: pulses 2+ throughout GI normal to inspection, nondistended, normoactive bowel sounds Narrative: Ice to perineum OB / External & Speculum: vaginal bleeding and other Lochia decreasing Uterus Palpation: uterus fundus firm (Below U) Extremity normal to inspection, full ROM and normal capillary refill Skin no rashes or lesions noted Neuro oriented x3, CN's II-XII intact bilaterally and gait normal Psych mental status grossly normal, thought process normal and activity/motor behavior normal Weight / BMI Weight Weight: 169 lb 12.095 oz Body Mass Index (BMI) 30.0 ABG / Lab / Microbiology Data 02/05/25 07:40 Laboratory: Laboratory Results - last 24 hr 02/05/25 07:40: Syphilis Total Ab Nonreactive, Blood Type A POSITIVE, Antibody Screen NEGATIVE D/C Instructions Discharge Diet: No restrictions Discharge Activity: Return to Normal Activity, No Restrictions, May Drive, May Shower and May Take a Tub Bath (Warm water only. No bath salts, soaps, bubbles) May resume sexual activity in: 6-8 weeks Weight Bearing Status: Weight bearing as tolerated Call your doctor if you observe: Fever of 101 or Higher, Inability to urinate, Using more than 1 pad per hour, Shortness of breath, Dizziness, Chest pain, Calf discomfort and Uncontrolled pain DC O2, CPAP, BIPAP Needs Home O2 Discharge instructions: No Please Follow Up With: [facility] Maraim ALVARADO When: 2 weeks in office or virtual Meaningful Use Info Meaningful Use Meaningful Use Diagnoses (Choose all that apply): None applicable Ischemic Stroke Statin Dosing Therapy Reference: STATIN DOSE THERAPY REFERENCE: * Patients > 75 years receive moderate or high dose statin therapy. * Patients 75 years or YOUNGER should receive HIGH intensity statin dose unless contraindicated. You will be required to document reason for non-treatment if statin daily dose does not meet guidelines. HIGH DOSE STATIN THERAPY DAILY Atorvastatin > than or = to 40 mg Rosuvastatin > than or = to 20 mg Amlodipine + Atorvastatin > than or = to 2.5/40 mg Ezetimibe + Simvastatin 10/80 mg Simvastatin 80mg Discharge Plan Admission Admit Date/Time: 02/05/25 07:12 Primary Reason for Your Visit: Labor and Delivery Attending Provider: Fouzia Constantino Primary Care Provider: Care Physician,No Primary Discharge Orders/Prescriptions Prescriptions: New acetaminophen 500 mg Tablet 1,000 mg PO Q6H PRN PRN (Reason: Pain 1-10 Or Fever) Qty: 0 0RF naproxen 500 mg Tablet 500 mg PO Q8H PRN PRN (Reason: Pain Score 1-10) Qty: 0 0RF Continued prenat.vits,abdoul,nnc-tjpr-butns Tablet 1 tab PO DAILY Referrals / Follow Up: Fouzia Constantino CNM [Med Staff - Counts Include [facility] Practice Prof] - Care Physician,No Primary [Primary Care Provider] - Disposition Disposition (needs filled in before D/C Order can be placed): Home, Self Care
[2025-02-06] MEDS: Naproxen 500 MG Tablet PO (09:55)
--- NOTE | 2025-02-06 14:35 | CASEMGMT ---
Social Work Assessment Labor and Delivery Unit Patient Address: [address] [place] [address] Phone number: [phone] Date of Referral: 02/05/2025 Time of Referral: 23:10 Referred By: Fouzia Constantino Date of Intervention: ?02/06/2025 Time of Intervention: 14:34 Reason for Referral: Anxiety and Depression History obtained from: Medical records, mother of baby (MOB) and father of baby (FOB).? Household composition: GEORGES, FOB (Abhilash, age 29) and their 4 sons, Gregorio, age 8, born in [place], Elia, age 5, Cecil, age 2 and Kenton, born on 02/05/2025. Patient's parent/guardian status: MOB and FOB have been together for 12 years and for almost 10 years. ???Both are actively involved and will be providing care for baby. MOB denied any concerns with domestic violence and described a positive and supportive relationship with the FOB. Medical History: ?, 4, Para, now 4. MOB received PNC beginning at 9 weeks and 0 days. Visits were observed to be routine. Apgars: 8 and 9. Weight: 6lbs, 14 oz. Supervisor Shuttle Preparation: [facility]; Kylah Jones. Educational Status: MOB and FOB denied any issues or concerns with reading or writing. MOB is a high school graduate with some college. FOB competed the 9th grade and went to school through some of the 10th grade. Financial Status: MOB and FOB reported their income is sufficient to meet the needs of their family at this time. MOB is currently a erue-qw-rhra mom (SAHM) and the FOB is part business chief informatics officer/remodeling and works full-time. Supplies: MOB and FOB reported they have all the supplies they need for baby at this time including but not limited to: Car Seat, bassinet, pack-n-play, crib, diapers, bottles, breast pump and clothing. Childcare/Caregiver(s):? GEORGES reported that as a SAHM, she will be the primary caregiver for and the FOB will also provide care when not working. Transportation:? MOB and FOB denied any transportation barriers. Programs/Agencies Involved: Medicaid and WIC.? GEORGES also reported she will be applying for food stamps and was just waiting to deliver before applying. No other agency involvement at this time. Children Services/Legal Issues:? Denied. Behavioral Health Issues: ??Mental Health History: GEORGES reported she struggled with depression and anxiety during the time she lived in [place], however reported it has since resolved itself.? MOB denied any current depression and/or anxiety. MOB reported she?s lived in [place] since February of 2017 or 2017 and has been doing much better. FOB denied any mental health history or concerns. ?Substance Use History:?? Denied. ???Family History: GEORGES reported her mother and sisters all have a history of depression and anxiety. ???Drug Screens: None obtained at the time of this admission. Family/Social Stressors: ?MOB and FOB denied any current family or social stressors. Support Systems: Ample.? GEORGES identified her biggest supports as?the FOB as well as the FOB?s family as they are live local. MOB reported most of her family still resides in [place]. MOB and FOB also identified their pentecostal as a support. Depression/Shaken Baby/Safe Sleeping: pull worker provided verbal and written education on PPD, Safe Sleeping and Shaken Baby.? Parents verbalized an understanding. GEORGES denied ever having experienced PPD with any of her other children. ASSESSMENT:? MOB and FOB provided consent to social work visit. Upon arrival, MOB was lying in the hospital bed, was sleeping in the crib and the FOB was nearby on a couch. The MOB and FOB were verbally engaged and cooperative. pull worker observed positive interaction between the MOB and FOB. [place] slept throughout. No concerns reported or noted. At the end of the assessment, geriatric social work professor requested to speak with the MOB alone which both were agreeable to. GEORGES denied any DV and reported feeling safe in her home. MOB denied any drug or alcohol abuse or un-managed mental health issues with either herself and/or the FOB. Safe Plan of Care for infant related to substance use: N/A; not needed. ? PLAN:? Baby to be discharged home when ready.? pull worker also provided written information on depression, depression resources and Help Me Grow as additional resources offered by geriatric social work professor which MOB and FOB accepted. No other services requested or indicated. María Pavon, SHAFTING WORKER, NET MOBILE DEVELOPER
[2025-02-06 16:30] LABS: Hematocrit 37.3 % (37-47); Mean Corp Hgb Conc 34.9 g/dL (32-36); Mean Corpuscular Hgb 30.7 pg (27.0-32.0); Mean Corpuscular Volume 88.2 fL (81-99); Mean Platelet Vol. 11.8 fl (6.2-12.0); Platelet Count 205 K/mm3 (150-450); RBC Distribution Width CV 13.1 % (11.6-14.6); RBC Distribution Width SD 41.9 fl (35.1-43.9); Red Blood Count 4.23 M/mm3 (4.2-5.4); White Blood Count 13.2 K/mm3 (4.4-11.0)
[2025-02-06 17:36] LABS: AST(SGOT) 23 U/L (<=31); Alanine Aminotransfer ALT/SGPT 16 U/L (<=34); Creatinine, Serum 0.63 mg/dL (0.70-1.20); EST Glomerular Filtration Rate 124 (>60); Estimated Creatinine Clearance 130.63 ml/min (50-250)
[2025-02-06 19:21] LABS: Uric Acid 4.5 mg/dL (2.6-6.0)
[2025-02-07 01:22] VITALS: BP 112/63; PULSE 69
[2025-02-07 01:25] VITALS: BP 112/63; PULSE 70; RESP 14; TEMP 30.6; O2SAT 96
--- NOTE | 2025-02-07 08:02 | DS.PCM_ITS ---
Providers Date of Admission: 02/05/25 Primary Care Physician: Mitzi Primary Care Phys Reason For Visit: INDUCTION Diagnosis Discharge Diagnosis (1) History of depression: Status: Acute Code(s): Z86.59 - Personal history of other mental and behavioral disorders (2) (spontaneous vaginal delivery): Status: Acute Code(s): O80 - Encounter for full-term uncomplicated delivery (3) Care and examination of lactating mother: Status: Acute Code(s): Z39.1 - Encounter for care and examination of lactating mother (4) Anxiety: Status: Acute Code(s): F41.9 - Anxiety disorder, unspecified Plan PPD 2 support Pain control D/C home with follow up in office Medications at Discharge Home Medications prenat.vits,abdoul,pjj-wntt-xbebi 1 tab PO DAILY Check with primary doctor 11/30/19 acetaminophen 500 mg tablet 1,000 mg (2 x 500 mg) PO Q6H PRN PRN Pain 1-10 Or Fever #0 tabs 02/06/25 naproxen 500 mg tablet 500 mg PO Q8H PRN PRN Pain Score 1-10 #0 tabs 02/06/25 Hospital Course Operations None Procedures None Summary of Care Provided Minutes Spent on Discharge: 15 Hospital Course: Patient had vaginal delivery. Hospital course was uneventful. Physical Exam Narrative Patient seen at bedside. Denies pain. Ambulating and voiding without difficulty. Lochia decreased. Desires discharge home today. Const alert and oriented x3 General Appearance: Negative for in distress HEENT normocephalic Eyes General Eye: normal appearance of both eyes Neck General: normal visual inspection Chest Chest: symmetrical chest wall rise Resp normal respiratory effort and normal air movement Effort and Inspection: symmetric chest movement; Negative for tachypneic Auscultation: clear to auscultation bilaterally Cardio regular rate and regular rhythm Peripheral Pulses: pulses 2+ throughout GI normal to inspection, nondistended, normoactive bowel sounds Narrative: Ice to perineum OB / External & Speculum: vaginal bleeding and other Lochia decreasing Uterus Palpation: uterus fundus firm (Below U) Extremity normal to inspection, full ROM and normal capillary refill Skin no rashes or lesions noted Neuro oriented x3, CN's II-XII intact bilaterally and gait normal Psych mental status grossly normal, thought process normal and activity/motor behavior normal Weight / BMI Weight Weight: 169 lb 12.095 oz Body Mass Index (BMI) 30.0 ABG / Lab / Microbiology Data 02/06/25 16:10 02/06/25 16:10 Laboratory: Laboratory Results - last 24 hr 02/06/25 16:10: WBC 13.2 H, RBC 4.23, Hgb 13.0, Hct 37.3, MCV 88.2, MCH 30.7, MCHC 34.9, RDW Std Deviation 41.9, RDW Coeff of Niru 13.1, Plt Count 205, MPV 11.8, Creatinine 0.63 L, Estim Creat Clear Calc 130.63, Est GFR (MDRD) Non-Af 124, Uric Acid 4.5, AST 23, ALT 16 D/C Instructions Discharge Diet: No restrictions Discharge Activity: Return to Normal Activity, No Restrictions, May Drive, May Shower and May Take a Tub Bath (Warm water only. No bath salts, soaps, bubbles) May resume sexual activity in: 6-8 weeks Weight Bearing Status: Weight bearing as tolerated Call your doctor if you observe: Fever of 101 or Higher, Inability to urinate, Using more than 1 pad per hour, Shortness of breath, Dizziness, Chest pain, Calf discomfort and Uncontrolled pain DC O2, CPAP, BIPAP Needs Home O2 Discharge instructions: No Please Follow Up With: [facility] Mariam ALVARADO When: 2 weeks in office or virtual Meaningful Use Info Meaningful Use Meaningful Use Diagnoses (Choose all that apply): None applicable Ischemic Stroke Statin Dosing Therapy Reference: STATIN DOSE THERAPY REFERENCE: * Patients > 75 years receive moderate or high dose statin therapy. * Patients 75 years or YOUNGER should receive HIGH intensity statin dose unless contraindicated. You will be required to document reason for non-treatment if statin daily dose does not meet guidelines. HIGH DOSE STATIN THERAPY DAILY Atorvastatin > than or = to 40 mg Rosuvastatin > than or = to 20 mg Amlodipine + Atorvastatin > than or = to 2.5/40 mg Ezetimibe + Simvastatin 10/80 mg Simvastatin 80mg Discharge Plan Admission Admit Date/Time: 02/05/25 07:12 Primary Reason for Your Visit: Labor and Delivery Attending Provider: Fouzia Constantino Primary Care Provider: Care Physician,No Primary Discharge Orders/Prescriptions Prescriptions: New acetaminophen 500 mg Tablet 1,000 mg PO Q6H PRN PRN (Reason: Pain 1-10 Or Fever) Qty: 0 0RF naproxen 500 mg Tablet 500 mg PO Q8H PRN PRN (Reason: Pain Score 1-10) Qty: 0 0RF Continued prenat.vits,abdoul,lwb-duch-ruopr Tablet 1 tab PO DAILY Referrals / Follow Up: Fouzia Constantino CNM [Med Staff - [facility] Practice Prof] - Care Physician,No Primary [Primary Care Provider] - Disposition Disposition (needs filled in before D/C Order can be placed): Home, Self Care
[2025-02-07 09:10] VITALS: BP 108/77; PULSE 81
[2025-02-07 09:12] VITALS: BP 108/77; PULSE 81; RESP 16; TEMP 36.5; O2SAT 97
== END 2025-02-07 10:00 | disposition home or self-care (01) | DRG 560 ==
PROVIDERS: Admitting Provider Advanced Practice Midwife; Referring Provider Advanced Practice Midwife; Visit Provider Advanced Practice Midwife
DX: O48.0 Post-term pregnancy (principal); Z37.0 Single live birth; O99.344 Other mental disorders complicating childbirth; F41.9 Anxiety disorder, unspecified; O69.81X0 Labor and delivery complicated by cord around neck, without compression, not applicable or unspecified; Z3A.40 40 weeks gestation of pregnancy; Z86.59 Personal history of other mental and behavioral disorders
CPT/HCPCS: 59025; 59050; 82565; 84450; 84460; 84550; 85025; 85027; 86780; 86850; 86900; 86901; 99221; G0378